=== PATIENT | male | born 1985 | race Hispanic/Latino ===

== ENCOUNTER → 2024-01-16 | Outpatient (CLI) | payer BC ==
--- NOTE | 2024-01-16 13:39 | HMCIMG ---
US ABDOMINAL COMPLETE REASON: ABD PAIN UNSPECIFIED COMPARISON: None FINDINGS: There is moderate fatty infiltration of the liver. There are no focal mass lesions. Liver is borderline in size at 17 cm.There is some echogenic material in the gallbladder which could be tiny nonshadowing stones. Kidneys appear normal in size and appearance. There is no evidence of mass, stone or hydronephrosis. Spleen and common duct appear normal. Aorta and inferior vena cava appear normal. The pancreas appears normal as well. IMPRESSION: 1. Possible tiny nonshadowing stones in an otherwise normal-appearing gallbladder. 2. Moderate fatty infiltration of the liver.
== END | disposition home or self-care (01) ==
LOC: RAH 10:48
PROVIDERS: ATTEND Nurse Practitioner Family
DX: K76.0 Fatty (change of) liver, not elsewhere classified (principal); R10.9 Unspecified abdominal pain
CPT/HCPCS: 76700